=== PATIENT | male | born 1935 | race Caucasian/White ===

== ENCOUNTER 2018-11-06 15:02 | Inpatient (IN) ==
[2018-11-06] MEDS ORDERED: NS 1,000 ML ONE (15:10)
[2018-11-06] MEDS ORDERED: DUONEB (A & A) INH ONE (15:21)
[2018-11-06] MEDS ORDERED: NS 1,000 ML IV ONE ×3 (15:32→19:34)
[2018-11-06 15:54] LABS: HEMOGLOBIN 14.5 g/dL (14.0-18.0); RBC 4.73 XMIL (4.7-6.1); WBC 21.34 X1000 (4.8-10.8)
[2018-11-06 15:55] LABS: BASO# 0.02 X1000 (0.0-0.2); BASO% 0.1 % (0.0-0.8); HEMATOCRIT 43.4 % (42.0-52.0); IMM GRAN# 0.07 X1000 (0.0-0.04); IMM GRAN% 0.3 % (0.0-0.5); LYMPH# 5.98 X1000 (1.2-3.4); MCH 30.7 PG (27-31); MCHC 33.4 g/dL (33-37); MCV 91.8 FL (81-99); MONO# 1.16 X1000 (0.11-0.59); MONO% 5.4 % (1.7-9.3); MPV 11.2 FL (7.4-10.4); NEUT# 14.11 X1000 (1.4-6.5); NEUT% 66.2 % (42.2-75.2); PLT 203 X1000 (130-400); RDW 13.6 % (11.5-14.5)
--- NOTE | 2018-11-06 15:56 | Diag Imaging Result Doc PS360 ---
EXAM: CHEST-1 VIEW 11/06/2018 HISTORY: respiratory failure TECHNIQUE: AP portable semiupright chest at 1543 COMMENT: There is poorly defined but fairly dense opacification of the medial right a cyst. There is apparent COPD. The heart size and pulmonary vascularity are within normal limits. There are no previous studies available for comparison. IMPRESSION: Right lower lobe pneumonia. Advise follow-up until clear. Electronically signed by Jd Hernandez 11/06/2018 3:53 PM
[2018-11-06 15:58] LABS: INR 1.36; PROTIME 17.9 Seconds (11.0-16.0); PTT 26.8 Seconds (22.3-41.8)
[2018-11-06 16:07] LABS: URINE SOURCE CATH
[2018-11-06 16:10] LABS: BILIRUBIN URINE NEGATIVE (NEGATIVE); BLOOD URINE MODERATE (NEGATIVE); COLOR ORANGE; GLUCOSE URINE TRACE mg/dL (NEGATIVE); KETONE URINE NEGATIVE (NEGATIVE); LEUKOCYTES URINE NEGATIVE (NEGATIVE); NITRITE URINE NEGATIVE (NEGATIVE); PH URINE 5.5; PROTEIN URINE 50 mg/dL (NEGATIVE); TURBIDITY URINE CLEAR (CLEAR); UROBILINOGEN URINE NORMAL (NORMAL)
[2018-11-06 16:12] LABS: UR EPITHELIAL CELLS <10 /HPF (<10); URINE BACTERIA NEGATIVE /HPF; URINE WBC <10 /HPF (<10)
[2018-11-06] MEDS ORDERED: ZOSYN 3.375 GM in NS 50 ML IV ONE (16:22)
[2018-11-06 16:23] LABS: ALLEN TEST NO; BLOOD TYPE ARTERIAL; HCO3-(ACT) 23.4 mmoll (20.0-26.0); METHB 1.5 % (0.0-1.5); MODALITY BI PAP; O2(CT) 18.5 mL/dL (15.0-23.0); PCO2(98.6) 36 mmHg (35-45); PO2(98.6) 224 mmHg (60-100); SAMPLE BLOOD; SAO2 100.3 % (95.0-100.0); SRATE 20 BPM; THB 13.2 g/dL (11.5-17.4)
[2018-11-06 16:27] LABS: BANDS 4 % (0-1); LYMPHS 20 % (21-51); MONO 6 % (1-9); SEGS 69 % (42-75)
--- NOTE | 2018-11-06 16:57 | PROVIDER DOCUMENTATION ---
This chart was entered by Julio Cesar Villalba Scribe, acting as scribe for Desmond Alves DO. HPI-Respiratory General - General Chief Complaint: Shortness of Breath Stated Complaint: Respiratory Distress Time Seen by Provider: 11/06/18 15:10 Source: EMS Unable to obtain history due to:: altered Allergies/Adverse Reactions: Patient Allergies Allergy/AdvReac Type Severity Reaction Status Date / Time No Known Allergies Allergy Verified 12/09/12 11:04 Home Medications: Home Medication List Medication Instructions Recorded Confirmed Last Taken Type ATORVAstatin [Lipitor] 40 mg PO DAILY 12/09/12 12/09/12 03/05/13 07:00 History Dutasteride [Avodart] 0.5 mg PO DAILY 12/09/12 12/09/12 03/05/13 History LISINOpril [Prinivil] 10 mg PO DAILY 12/09/12 12/09/12 03/05/13 History Chlordiazepoxide [Librium] 25 mg PO TID 03/07/13 03/07/13 03/05/13 16:00 History Fluoxetine [Prozac] 40 mg PO BID 03/07/13 03/07/13 03/06/13 19:00 History Metformin HCl [Metformin HCl ER] 500 mg PO ACS 03/07/13 03/07/13 03/05/13 16:00 History - History of Present Illness-Resp Nature of Presenting Problem: Pt comes to the ED with respiratory distress. EMS reports pt was found by his neighbors who called EMS. On arrival pt was in his chair in respiratory distress. On arrival pt was on a non-rebreather mask at 15 liters with a SAT in mid 80's. EMS reports pt did fall a couple days ago and refused transport for evaluation. EMS also says his intake has been fluids only for a couple days. . Severity in ED: reports: severe Onset/Duration: reports: unsure Timing: reports: still present Exposure: reports: allergen exposure Review of Systems - Adult - REVIEW OF SYSTEMS - ADULT ROS:: unobtainable per condition Constitutional: denies: chills, fever Past History - Adult - PAST MEDICAL HISTORY-ADULT Review of Records: reports: Old Records Reviewed, Nursing Assessment Review, Medications Reviewed - SOCIAL HISTORY Living Situation: alone Physical Exam-General - PHYSICAL EXAM-ADULT Initial Vital Signs Reviewed: Yes - CONSTITUTIONAL General Appearance: alert (Pt is awake and altered; not really answering questions), moderate distress, other (pt is malnourished, frail, bones very visible. Pt has a urine odor). negative: appears well (ill in appearance) - EYES Eyes: PERRL/EOMI, pink conjunctivae - HEAD, EARS, NOSE, MOUTH & THROAT HENMT: normal ENT inspection. negative: moist mucous membranes (dry) - NECK Neck: non-tender, full range of motion, supple - RESPIRATORY Respiratory: respiratory distress, decreased breath sounds, wheezing, increased rate - CARDIOVASCULAR Cardiovascular: normal peripheral pulses, tachycardia - GASTROINTESTINAL (ABDOMEN) Abdominal Exam: soft, no organomegaly - MUSCULOSKELETAL Extremity: pelvis stable, other (dry skin lower extremities). negative: normal inspection (abrasion left knee; skin ulcer right leg) - SKIN Integumentary: abrasion(s) (left lower extremity), other (skin lesion right leg) . negative: normal turgor - NEUROLOGIC Neurologic: negative: grossly normal, no motor/sensory deficits - PSYCHIATRIC Psych/Mental Status: negative: normal mood/affect, normal thought content, normal thought process, oriented x 3 Progress - PLAN OF CARE/RESULTS Progress/Plan/Lab Results: Vital Signs - 8 hr 11/06/18 15:15 11/06/18 15:21 Temperature 99.1 F Pulse Rate 126 H 120 H Respiratory Rate 34 H 25 H Blood Pressure 86/66 O2 Sat by Pulse Oximetry 86 L 97 Laboratory Results - last 24 hr 11/06/18 11/06/18 11/06/18 15:06 15:06 15:09 WBC 21.34 H RBC 4.73 Hgb 14.5 Hct 43.4 MCV 91.8 MCH 30.7 MCHC 33.4 RDW Std Deviation 13.6 Plt Count 203 MPV 11.2 H Immature Gran % (Auto) 0.3 Neut % (Auto) 66.2 Lymph % (Auto) 28.0 Vigo % (Auto) 5.4 Eos % (Auto) 0.0 Baso % (Auto) 0.1 Immature Gran # (Auto) 0.07 H Neut # (Auto) 14.11 H Lymph # (Auto) 5.98 H Vigo # (Auto) 1.16 H Eos # (Auto) 0.00 Baso # (Auto) 0.02 Segmented Neutrophils 69 Band Neutrophils 4 H Lymphocytes 20 L Monocytes 6 Metamyelocytes 1.0 PT INR PTT (Actin FS) Specimen Type Sample Site pH pCO2 pO2 HCO3 Base Excess Oxyhemoglobin ABG O2 Sat (Calculated) ABG O2 Saturation ABG Carboxyhemoglobin ABG Methemoglobin Ji Test A-a O2 Difference Total Hemoglobin Lactate Liter Flow Blood Gas Modality Spontaneous Rate FiO2 % Inspiratory BiPAP Expiratory BiPAP Troponin T 0.037 Plasma Lactate 2.8 H Urine Source Urine Color Urine Turbidity Urine pH Ur Specific [place] Urine Protein Ur Glucose (Stick) Ur Ketones (Stick) Urine Blood Urine Nitrite Urine Bilirubin Urobilinogen Dipstick Urine Leukocytes Urine WBC (Auto) Urine RBC (Auto) U Epithel Cells (Auto) Urine Bacteria (Auto) 11/06/18 11/06/18 11/06/18 15:10 16:00 16:15 WBC RBC Hgb Hct MCV MCH MCHC RDW Std Deviation Plt Count MPV Immature Gran % (Auto) Neut % (Auto) Lymph % (Auto) Vigo % (Auto) Eos % (Auto) Baso % (Auto) Immature Gran # (Auto) Neut # (Auto) Lymph # (Auto) Vigo # (Auto) Eos # (Auto) Baso # (Auto) Segmented Neutrophils Band Neutrophils Lymphocytes Monocytes Metamyelocytes PT 17.9 H INR 1.36 PTT (Actin FS) 26.8 Specimen Type ARTERIAL Sample Site R BRACHIAL pH 7.40 pCO2 36 pO2 224 H HCO3 23.4 Base Excess -2.0 Oxyhemoglobin 97.0 ABG O2 Sat (Calculated) 18.5 ABG O2 Saturation 100.3 H ABG Carboxyhemoglobin 1.80 ABG Methemoglobin 1.5 Ji Test NO A-a O2 Difference 444.0 Total Hemoglobin 13.2 Lactate 2.20 Liter Flow 15.0 Blood Gas Modality BI PAP Spontaneous Rate 20 FiO2 % 100.0 Inspiratory BiPAP 18.0 Expiratory BiPAP 6.0 Troponin T Plasma Lactate Urine Source CATH Urine Color ORANGE Urine Turbidity CLEAR Urine pH 5.5 Ur Specific [place] 1.020 Urine Protein 50 A Ur Glucose (Stick) TRACE Ur Ketones (Stick) NEGATIVE Urine Blood MODERATE A Urine Nitrite NEGATIVE Urine Bilirubin NEGATIVE Urobilinogen Dipstick NORMAL Urine Leukocytes NEGATIVE Urine WBC (Auto) <10 Urine RBC (Auto) 10-20 A U Epithel Cells (Auto) <10 Urine Bacteria (Auto) NEGATIVE Orders Category Date Time Status Cardiac Monitoring DIRECTED Care 11/06/18 15:29 Active IV Insertion ORDERED Care 11/06/18 15:29 Completed Notify MD of + Sepsis Screen NOW Care 11/06/18 15:29 Active Notify Physician As Ordered Care 11/06/18 15:29 Active CHEST-1 VIEW [RAD] Stat Exams 11/06/18 15:[address] HEAD W/O CONTRAST [CT] Stat Exams 11/06/18 15:49 Ordered ABG [RESP] Routine Lab 11/06/18 16:15 Completed BLOOD CULTURE [BLDCUL] Stat Lab 11/06/18 15:09 Results CBC WITH DIFF [HEME] Stat Lab 11/06/18 15:06 Completed CK PROFILE [SP CHEM] Stat Lab 11/06/18 15:10 Received COMPREHENSIVE METABOLIC PANEL [CHEM] Stat Lab 11/06/18 15:10 Received LACTATE, PLASMA [CHEM] Q3H Lab 11/06/18 15:09 Completed LACTATE, PLASMA [CHEM] Q3H Lab 11/06/18 18:30 Uncollected LACTATE, PLASMA [CHEM] Q3H Lab 11/06/18 21:30 Uncollected PROTIME WITH INR [COAG] Stat Lab 11/06/18 15:10 Completed PTT [COAG] Stat Lab 11/06/18 15:10 Completed TROPONIN T Stat Lab 11/06/18 15:06 Completed URINALYSIS W/POSS RFLX CULT [URINALYSIS] Stat Lab 11/06/18 16:00 Completed 0.9% Sodium Chloride Inj [Ns] 1,000 ml Med 11/06/18 15:10 Discontinued .ROUTE As directed 0.9% Sodium Chloride Inj [Ns] 1,000 ml Med 11/06/18 15:32 Discontinued IV 999 mls/hr 0.9% Sodium Chloride Inj [Ns] 1,000 ml Med 11/06/18 15:32 Discontinued IV 999 mls/hr Albuterol 2.5MG/Ipratrop 0.5MG [Duoneb (A & A)] Med 11/06/18 15:21 Discontinued 3 ml INH NOW ONE Piperacillin/Tazobactam [Zosyn] 3.375 gm Med 11/06/18 16:22 Discontinued 0.9% Sodium Chloride Inj [Ns] 50 ml IV NOW Aerosol Treatments Routine Oth 11/06/18 15:21 Completed Aerosol Treatments Stat Oth 11/06/18 15:21 Completed BIPAP Stat Oth 11/06/18 15:20 Active Oxygen Device Stat Ot 11/06/18 15:29 Completed Transfer/Admit Order [TRANSFER] Routine Transfer 11/06/18 16:51 Ordered Result Diagrams: 11/06/18 15:06 - EKG 1 Time of EKG reading by physician:: 15:16 EKG Read and Signed by:: Desmond Alves EKG Interpretation (*Must complete 3 of following elements*): Abnormal Rate: 120 Rhythm: Sinus Tachycardia Comments: borderline ECG - XRAY 1 XRAY Study: Chest Impression: Abnormal (EXAM: CHEST-1 VIEW 11/06/2018 HISTORY: respiratory failure TECHNIQUE: AP portable semiupright chest at 1543 COMMENT: There is poorly defined but fairly dense opacification of the medial right a cyst. There is apparent COPD. The heart size and pulmonary vascularity are within normal limits. There are no previous studies available for comparison. IMPRESSION: Right lower lobe pneumonia. Advise follow-up until clear. Electronically signed by Jd Hernandez 11/06/2018 3:53 PM) - CONSULTS/PCP/HOSPITALIST Notification #1 *Consult/PCP/Hospitalist*: Dr Burgos- hospitalist spoke with Jenny Time Discussed: 16:53 Reason/Comments: admission Consult Disposition: Will see in ED (accepts) Departure - Departure Date of Disposition Decision: 11/06/18 Time of Disposition Decision: 16:56 DIAGNOSIS: Respiratory failure, Sepsis Disposition: ADMITTED INPATIENT 09 Certified Medical Emergency: Emergent Condition: Critical Referrals and Follow-Ups: None,PCP [Primary Care Provider] - - Critical Care Note This patient required my direct & personal management of CC.: No Attestation - Physician/ NAILA Attestation Patient care was provided by Advanced Practice Provider:: No The physician spent face to face time with patient:: Yes Advanced Practice Provider documentation review:: Supervising physician onsite and consulted in the evaluation and care of this patient. The physician did have a face to face encounter with the patient. This chart was documented by the indicated scribe, (Julio Cesar Villalba Scribe) and accurately reflects the services I performed and decisions made by me, Desmond Alves DO, as attested by the provider's signature.
[2018-11-06 16:58] LABS: ALB/GLOB RATIO 0.8; ALBUMIN 3.2 g/dL (3.5-5.0); CALCIUM 8.8 mg/dL (8.8-10.2); CREATININE 2.7 mg/dL (0.7-1.2); POTASSIUM 4.6 mmol/L (3.5-5.1); TOTAL BILIRUBIN 0.96 mg/dL (0.20-1.00)
--- NOTE | 2018-11-06 17:14 | Diag Imaging Result Doc PS360 ---
EXAM: CT HEAD W/O CONTRAST 11/06/2018 HISTORY: unresponsive TECHNIQUE: This exam was performed using automated exposure control, adjustment of mA or kV according to patient size, and/or use of iterative reconstruction technique. COMMENT: There are patchy lucencies in the periventricular white matter bilaterally. There is a small lacune in the posterior putamen on the left. There is no evidence of mass effect bleed or abnormal extra-axial fluid collection. There are calcifications in the internal carotid arteries bilaterally. The visualized paranasal sinuses are clear. The calvarium is intact. IMPRESSION: Chronic ischemic microvascular changes. No evidence of acute intracranial disease. Electronically signed by Jd Hernandez 11/06/2018 5:11 PM
[2018-11-06 17:16] LABS: CK INDEX 0.1 (0.0-2.5)
--- NOTE | 2018-11-06 17:43 | EKG Report ---
Test Performed on : 11/06/2018 3:16:43 PM Test Reason : ED. No order in [place] Blood Pressure : / mmHG Vent. Rate : 120 BPM Atrial Rate : 120 BPM P-R Int : 124 ms QRS Dur : 078 ms QT Int : 364 ms P-R-T Axes : 082 074 077 degrees QTc Int : 514 ms Sinus tachycardia. Right atrial enlargement Borderline ECG No previous ECGs available Unconfirmed Result
--- NOTE | 2018-11-06 18:22 | PROGRESS NOTE ---
DATE: 11/06/2018 ADVANCE CARE NOTE Patient was evaluated. He was very tired and disheveled, but he did say he did not want to be put on a ventilator or have any aggressive measures. He has been refusing care for several days even admission to the hospital. I discussed with his son, Fabian, who is a power of estate attorney in [place] the patient's prognosis but also that he refused care, and he agreed, acknowledged the patient's wishes that he did not want any aggressive care at this time, so the patient is a DNR 1 based on this conversation with family member and patient. cc: Miguel Burgos MD
--- NOTE | 2018-11-06 18:30 | HISTORY AND PHYSICAL ---
The patient is unfortunate gentleman. It looks like he is diabetic. He is hypertensive but he also has not been taking care of himself. Per his son, he has just refused all care. He just was found in his apartment. He was lying in his own waste and he came in for evaluation. He seemed stable and then all of a sudden he has been refusing care. According to the son they have been trying to get him admitted to hospice but that never happened or he refused hospice and now he is just basically unable take himself. He kind of perseverates and says things over and over again and he was stabilized here continued to follow. The problem is I am not sure in any case patient was evaluated at home and he was brought in, he was found to have pneumonia. He is in acute kidney failure. He is dehydrated, he is disheveled on exam, he is extremely cachectic, bitemporal wasting, ribs showing so we will continue supportive measures, IV antibiotics, fluids and continue to follow very closely. This is a [id number] encounter note with Milly Galarza. cc: Miguel Burgos MD
--- NOTE | 2018-11-06 18:55 | HISTORY AND PHYSICAL ---
CODE STATUS: DNR level 1. PRIMARY CARE PROVIDER: None. CHIEF COMPLAINT: The patient reports "I am doing fine." HISTORY OF PRESENT ILLNESS: Mr. Smith is a cachectic, unkept, ill-appearing, unfortunate 83-year- old male who carries a past medical history of diabetes mellitus, hypertension, BPH, high cholesterol, right carotid endarterectomy, major depressive disorder in the past when he was at [facility] in 2012. He was brought into the ED by EMS in respiratory distress. He was found by his neighbors who called 911. There was a reported fall a few days ago when the patient had refused transport for evaluation, and EMS also reported that his intake had been only fluids for the past couple of days. Per nurse report, the patient was on, I guess you could say, like a hunger strike. Upon further evaluation in the ED, he was found to have a right lower lobe pneumonia. He was tachycardic, tachypneic, and with a positive lactate. He is being admitted for sepsis to the ICU currently on BiPAP and placed on broad-spectrum antibiotics and bronchodilators. The patient just keeps saying, I am doing fine. He reports that he does not want any life-saving measures. We were not too sure if he was stable enough to make his own decisions. We did talk to his son, Damian, who lives in [place] who is his [id number], and he states that he can be a DNR level 1. He looks severely malnourished and dehydrated. He does have a skin cancer on his right lower extremity. He was found in his own urine and feces. He will be admitted to the ICU to continue current treatment. PAST MEDICAL HISTORY: 1. Major depressive disorder back in 2012. 2. Carotid artery disease. 3. High cholesterol. 4. BPH. 5. Hypertension. 6. Diabetes. ALLERGIES: No known drug allergies. HOME MEDICATIONS: Unknown. Per report, he has not really been taking any. FAMILY HISTORY: Unknown. SOCIAL HISTORY: He lives alone. He has a son who lives in [place] who is his [id number]. PAST SURGICAL HISTORY: Right carotid endarterectomy. PHYSICAL EXAMINATION: VITAL SIGNS: Temperature was 99 degrees, heart rate 126, respirations 34, blood pressure was 86/66. O2 was initially 86% on a non-rebreather on BiPAP. He is up to 97%. GENERAL: Mr. Smith is an unfortunate, cachectic, ill-appearing, unkept, 83-year-old male who came in by EMS covered in urine and feces. Currently on BiPAP in some respiratory distress. HEENT: Atraumatic, normocephalic. PERRL. NECK: Supple. Trachea midline. CARDIOVASCULAR: S1, S2 appreciated. Can not appreciate any murmurs, gallops, or rubs. RESPIRATORY: Lung sounds decreased bilaterally. GI: Flat. Appeared to be nontender. Positive bowel sounds in 4 quadrants. : Draining tea-colored urine. SKIN: Pale, dry. Various scrapes and bruises of various healing. He does have a right skin cancer to his right lower extremity that has not been dealt with. NEUROLOGIC: The patient is awake. He does fight when you try to take his covers off. He wants them back on, and all he will say is "I'm doing fine." He did not really follow any commands, but he was moving all extremities. DIAGNOSTIC DATA: Head CT showed chronic ischemic microvascular changes but no evidence of acute intracranial disease. LABORATORY DATA: White count 20, hemoglobin and hematocrit 14 and 43, platelet count is 203,000. ABG with pH 7.40, pCO2 of 36, O2 is 224, base excess -2. O2 saturation was 100% on BiPAP. Sodium 143, potassium 4.6, carbon dioxide 21. Blood glucose is 149, AST 38. CK was 779. Plasma lactate 2.8. Urinalysis 10 to 20 RBCs, moderate amount of blood, 50 protein, negative for bacteria, negative for nitrites. ASSESSMENT AND PLAN: 1. Sepsis secondary to right lower lobe pneumonia. We will place the patient on a septic protocol, IV antibiotic, IV fluids. 2. Acute hypoxemic respiratory failure. Will continue on BiPAP. Recheck an ABG in the a.m. 3. Protein-calorie malnutrition. We will continue with IV fluids for now. 4. Dehydration. Continue with IV fluids. 5. Acute kidney injury, possibly secondary to dehydration. We will recheck in the a.m. 6. Failure to thrive. 7. Major depressive disorder history, aware. 8. Carotid artery stenosis status post endarterectomy. 9. High cholesterol. 10. Benign prostatic hypertrophy. 11. Hypertension. 12. Diabetes. 13. Hypotension upon arrival, somewhat improved with IV fluids. 14. Code status: [id number] level 1. 15. Further recommendation to follow physician evaluation, laboratory and diagnostic data. Dictated by JOHNY Chow for Miguel Burgos MD cc: Miguel Burgos MD
[2018-11-06] MEDS ORDERED: VANCOMYCIN IV PER PHARMACY MISC SCH (19:56)
[2018-11-06] MEDS: HUMALOG SUBQ SCH (20:36)
[2018-11-06] MEDS ORDERED: VANCOMYCIN 1,000 MG in NS 250 ML IV ONE (21:00)
[2018-11-06] MEDS: NS 1,000 ML IV SCH (21:36)
[2018-11-06] MEDS ORDERED: VANCOMYCIN 250 MG in NS 100 ML IV ONE (23:00)
[2018-11-07] MEDS: ZOSYN 3.375 GM in NS 50 ML IV SCH ×5 (00:40→21:59)
--- NOTE | 2018-11-07 02:08 | EKG Report ---
Test Performed on : 11/07/2018 00:56:27 AM Test Reason : tachycardia Blood Pressure : / mmHG Vent. Rate : 163 BPM Atrial Rate : 131 BPM P-R Int : 000 ms QRS Dur : 084 ms QT Int : 292 ms P-R-T Axes : 000 -35 029 degrees QTc Int : 480 ms Atrial fibrillation. with rapid ventricular response. with premature ventricular or aberrantly conduc tayo complexes. Left axis deviation Nonspecific ST abnormality Abnormal ECG When compared with ECG of 06-NOV-2018 15:16, (Unconfirmed) Atrial fibrillation. has replaced Sinus rhythm. QRS axis shifted left Non-specific change in ST segment in Inferior leads Nonspecific T wave abnormality now evident in Inferior leads T wave amplitude has decreased in Anterior leads Confirmed by Kristopher Durham MD ([id number]) on 11/09/2018 8:53:25 PM
[2018-11-07] MEDS ORDERED: CARDIZEM IV ONE (02:16)
[2018-11-07] MEDS ORDERED: LEVOPHED 8 MG in D5 1/2 NS 250 ML IV SCH (02:30)
[2018-11-07] MEDS ORDERED: NS 500 ML IV ONE (02:32)
[2018-11-07] MEDS: CARDIZEM 125 MG in NS 100 ML IV SCH ×2 (02:38→11:55)
[2018-11-07] MEDS ORDERED: NS 500 ML ONE (02:39)
[2018-11-07] MEDS: NS 1,000 ML IV SCH ×2 (02:44→08:22)
[2018-11-07 04:39] LABS: ALLEN TEST YES; BE -5.9 mmoll (-3.0-3.0); BLOOD TYPE ARTERIAL; HCO3-(ACT) 20.1 mmoll (20.0-26.0); METHB 1.2 % (0.0-1.5); O2(CT) 17.1 mL/dL (15.0-23.0); O2HB 90.3 % (95.0-99.0); PCO2(98.6) 33 mmHg (35-45); PO2(98.6) 63 mmHg (60-100); SAMPLE BLOOD; SAO2 93.1 % (95.0-100.0); SRATE 24 BPM; THB 13.5 g/dL (11.5-17.4); pH(98.6) 7.36 (7.35-7.45)
[2018-11-07 04:41] LABS: MODALITY BI PAP
[2018-11-07 06:02] LABS: ALB/GLOB RATIO 0.7; ALBUMIN 2.1 g/dL (3.5-5.0); CALCIUM 7.3 mg/dL (8.8-10.2); CREATININE 2.2 mg/dL (0.7-1.2); TOTAL BILIRUBIN 0.8 mg/dL (0.20-1.00); TOTAL PROTEIN 5.3 g/dL (6.3-8.3)
[2018-11-07] MEDS: HUMALOG SUBQ SCH ×4 (06:17→20:59)
--- NOTE | 2018-11-07 07:29 | Diag Imaging Result Doc PS360 ---
EXAM: CHEST-PORTABLE INDICATION: Pneumonia TECHNIQUE: 2 views COMPARISON: 11/06/2018 FINDINGS: COPD changes are again noted. Dense right lower lobe airspace consolidation suggesting pneumonia is stable to marginally worse. No new consolidation is identified. Cardiac silhouette is stable. IMPRESSION: Stable to marginal worsening of right lower lung zone consolidation. Electronically signed by Abdi Reno 11/07/2018 7:26 AM
[2018-11-07 09:11] LABS: BASO# 0.02 X1000 (0.0-0.2); BASO% 0.1 % (0.0-0.8); EOS# 0.01 X1000 (0.0-0.7); EOS% 0.1 % (0.0-10.0); HEMATOCRIT 38.7 % (42.0-52.0); HEMOGLOBIN 12.7 g/dL (14.0-18.0); IMM GRAN# 0.37 X1000 (0.0-0.04); IMM GRAN% 1.9 % (0.0-0.5); LYMPH# 3.15 X1000 (1.2-3.4); LYMPH% 16.5 % (20.5-51.1); MCH 30.7 PG (27-31); MCHC 32.8 g/dL (33-37); MCV 93.5 FL (81-99); MONO# 0.82 X1000 (0.11-0.59); MONO% 4.3 % (1.7-9.3); MPV 11.7 FL (7.4-10.4); NEUT# 14.77 X1000 (1.4-6.5); NEUT% 77.1 % (42.2-75.2); PLT 113 X1000 (130-400); RBC 4.14 XMIL (4.7-6.1); WBC 19.14 X1000 (4.8-10.8)
[2018-11-07] MEDS: NEXIUM IV SCH (09:29)
[2018-11-07 11:05] LABS: BANDS 25 % (0-1); LYMPHS 15 % (21-51); MONO 4 % (1-9); SEGS 56 % (42-75)
[2018-11-07] MEDS: D5 1/2 NS 1,000 ML IV SCH ×2 (11:57→21:55)
--- NOTE | 2018-11-07 12:02 | PROGRESS NOTE ---
DATE: 11/07/2018 SUBJECTIVE: He is still very confused, refuses really to discuss with us. OBJECTIVE: Blood pressure 137/83, heart rate 91, respiratory rate 26, and temperature was 97.7 degrees.Cardiovascular: Irregularly irregular. Pulmonary: Diminished breath sounds at the bases. GI: Soft, nontender, and nondistended. Bowel sounds are positive. Scaphoid abdomen. LABORATORY: White count 19. Hemoglobin and hematocrit 12 and 38, and platelets have dropped to 113. A pH 7.36, pCO2 33, PaO2 63 that is on BiPAP. Sodium is up to 149. Bicarb down to 17. BUN and creatinine are 80 and 2.2. Glucose is 120. Chest x-ray shows more consolidation. PROBLEM LIST: 1. Right lower lobe pneumonia with respiratory failure. We will continue antibiotics, follow closely, and treat closely. 2. Acute hypoxic respiratory failure. He is currently on BiPAP. We will continue to monitor. Pulmonary is following. 3. Acute kidney injury, likely due to dehydration. Malnutrition has not improved much with fluids. We will continue to monitor. Check urine electrolytes. Renal ultrasound and follow. 4. Atrial fibrillation with rapid ventricular response. He has developed atrial fibrillation overnight that may have been related to sepsis, and breathing treatments. We will continue to monitor. DISPOSITION: He is still critically ill. Updated his local friend who has been his caregiver here and lifelong friend about his condition. He is a DNR 1. Unfortunately, patient is not wanting to participate in his care. I am not sure if this is related to depression or dementia, or issues from that standpoint. We will continue current care. Get a palliative care consult. Discussed with the family, and see how things go. cc: Miguel Burgos MD
[2018-11-07 13:38] LABS: CK INDEX 0.6 (0.0-2.5); CK-MB 2.04 ng/mL (0.0-5.0)
[2018-11-07 19:33] LABS: UR PROT RANDOM 34.9 mg/dL
[2018-11-08] MEDS: ZOSYN 3.375 GM in NS 50 ML IV SCH ×2 (05:16→10:14)
[2018-11-08] MEDS ORDERED: LOVENOX SUBQ SCH (06:00)
[2018-11-08] MEDS: HUMALOG SUBQ SCH ×4 (06:05→20:39)
--- NOTE | 2018-11-08 06:05 | CONSULTATION ---
DATE OF CONSULTATION: 11/07/2018 REQUESTING PROVIDER: JOHNY Chow. REASON FOR CONSULTATION: Respiratory failure. HISTORY OF PRESENT ILLNESS: This is an 83-year-old male with a medical history of major depressive disorder, diabetes mellitus type 2, hypertension, benign prostatic hyperplasia, high cholesterol, and carotid artery disease. He presented to the ER yesterday afternoon with respiratory distress. Upon arrival to the ER, the patient was placed on a non- rebreather mask at 15 L with oxygen saturation in mid 90s. Chest x-ray showed right lower lobe pneumonia. Further workup also revealed sepsis, dehydration, and acute kidney injury. He has been admitted to the ICU for further evaluation and management. The patient currently is lying on bed with BiPAP mask on. He mainly keeps silent as I am talking to him, and he tried to avoid eye contact. He did not answer any of my questions, and not follow any simple commands. He has a friend at the bedside. His friend reported that the patient has a productive cough for 2 weeks with some yellow phlegm, and later he developed shortness of breath. He refused going to seek medical treatment. He told his friend that he decided to let go and he is ready to . His friend also reported that he had a fall last Wednesday and he refused to be evaluated. PAST MEDICAL HISTORY: 1. Major depressive disorder, diagnosed in 2012. 2. Diabetes mellitus type 2. 3. Hypertension. 4. Benign prostatic hyperplasia. 5. High cholesterol. 6. Carotid artery disease, status post right carotid endarterectomy. 7. Medical noncompliance. The patient's friend reported that the patient has not taken any medicine for 3 years. SOCIAL HISTORY: The patient has 2 sons, both lives in [place]. He lives alone in an apartment. He used to be a heavy smoker. He smoked for over 50 years, and later he viped for 7 years until he quit 1 year ago as it is not allowed to vipe inside the apartment. He has no history of alcohol or illicit drug use. FAMILY HISTORY: Per patient's friend, both his parents at old age. ALLERGIES: No known drug allergies. REVIEW OF SYSTEMS: Unable to be obtained. PHYSICAL EXAMINATION: Vital Signs: Temperature 97.7, blood pressure 130/69, pulse 87, respiratory rate 25, and oxygen saturation 96% on BiPAP with FiO2 50% and pressure 12/6. General: Chronically ill appearing cachectic, unkempt, elderly male lying in bed on a BiPAP mask with some respiratory distress. HEENT: Atraumatic, normocephalic. Trachea midline. Mucosa pink and moist. Respiratory: labored, uses some accessory muscles. Auscultation revealed diminished breathing sounds bibasilarly and some mild old inspiratory crackles bibasilarly. Cardiovascular: S1 and S2 noted. Irregularly irregular with murmur. Gastrointestinal: Soft, flat, and nontender. Bowel sounds normoactive in all 4 quadrants. Extremities: No pedal edema. Dorsalis pedis diminished bilaterally. Neurologic: The patient is awake, but not responsive to any simple command. Patient is awake, but not answering any questions. He tried to avoid eye contact. He did not follow any commands. LABORATORY: White blood cell 19.14, hemoglobin 12.7, hematocrit 38.7, and platelet 114,000. Sodium 149, potassium 4.0, chloride 116, carbon dioxide 17, BUN 80, creatinine 2.2, and glucose 120. ABG pH 7.36, pCO2 33, PO2 63, HC03 20.1, base excess -5.9, and oxyhemoglobin 90.3. IMAGING DATA: Chest x-ray revealed stable to marginal worsening of right lower lung zone consolidation. ASSESSMENT: This is an 83-year-old male with a medical history of major depressive disorder. Diabetes mellitus type 2, hypertension, benign prostatic hyperplasia, high cholesterol, and carotid artery disease. He has been admitted since yesterday to the ICU with sepsis secondary to right lower lobe pneumonia, acute hypoxemic respiratory failure, protein calorie malnutrition, dehydration, acute kidney injury, failure to thrive. 1. Acute hypoxemic respiratory failure. 2. Right lower lobe pneumonia. 3. Sepsis secondary to right lower lobe pneumonia. 4. Acute kidney injury. 5. Major depressive disorder. 6. Code status DNR 1. PLAN: 1. Continue BiPAP with supplemental oxygen. 2. Continue antibiotics. 3. Follow up with CBC, BMP, blood cultures, sputum culture and chest x-ray. 4. Continue GI and DVT prophylaxis. 5. Further recommendations pending hospital course. Thank you for the courtesy of this consult. Dictated by JOHNY Perez for Raegan Bailey MD cc: JOHNY Perez MD MTDD
[2018-11-08 06:21] LABS: BASO# 0.01 X1000 (0.0-0.2); EOS# 0.01 X1000 (0.0-0.7); HEMATOCRIT 29.5 % (42.0-52.0); HEMOGLOBIN 9.9 g/dL (14.0-18.0); IMM GRAN# 0.26 X1000 (0.0-0.04); IMM GRAN% 1.1 % (0.0-0.5); LYMPH# 3.64 X1000 (1.2-3.4); LYMPH% 16.1 % (20.5-51.1); MCHC 33.6 g/dL (33-37); MCV 92.5 FL (81-99); MPV 13.1 FL (7.4-10.4); NEUT# 17.79 X1000 (1.4-6.5); NEUT% 78.8 % (42.2-75.2); PLT 111 X1000 (130-400); RBC 3.19 XMIL (4.7-6.1); RDW 13.7 % (11.5-14.5); WBC 22.61 X1000 (4.8-10.8)
[2018-11-08 06:32] LABS: HEMOGLOBIN A1C 5.3 % (4.8-6.0)
[2018-11-08 07:10] LABS: CALCIUM 7.9 mg/dL (8.8-10.2); CREATININE 1.7 mg/dL (0.7-1.2); POTASSIUM 3.3 mmol/L (3.5-5.1)
[2018-11-08 07:14] LABS: DIRECT BILIRUBIN 0.2 mg/dL (0.00-0.20)
[2018-11-08 07:36] LABS: TOTAL BILIRUBIN 0.57 mg/dL (0.20-1.00); TOTAL PROTEIN 5.9 g/dL (6.3-8.3)
[2018-11-08 07:49] LABS: ALB/GLOB RATIO 0.6; ALBUMIN 2.3 g/dL (3.5-5.0)
--- NOTE | 2018-11-08 08:45 | Diag Imaging Result Doc PS360 ---
EXAM: CHEST-1 VIEW INDICATION: SOB TECHNIQUE: One view COMPARISON: 11/07/2018 FINDINGS: The dense right lower lung zone consolidation is unchanged. No new consolidation is identified. Cardiac silhouette is stable. IMPRESSION: Stable chest. Electronically signed by Abdi Reno 11/08/2018 8:43 AM
[2018-11-08] MEDS: NEXIUM IV SCH (08:49)
[2018-11-08] MEDS: ARIXTRA SUBQ SCH (08:49)
[2018-11-08] MEDS: SODIUM CHLORIDE 0.9% INJ SCH (08:49)
[2018-11-08 08:55] LABS: ALLEN TEST YES; BE -2.9 mmoll (-3.0-3.0); BLOOD TYPE ARTERIAL; HCO3-(ACT) 22.6 mmoll (20.0-26.0); METHB 0.6 % (0.0-1.5); O2HB 94.3 % (95.0-99.0); PCO2(98.6) 30 mmHg (35-45); PO2(98.6) 66 mmHg (60-100); SAMPLE BLOOD; SAO2 97.3 % (95.0-100.0); SRATE 4 BPM; THB 11.3 g/dL (11.5-17.4); pH(98.6) 7.44 (7.35-7.45)
[2018-11-08 08:56] LABS: MODALITY BI PAP
[2018-11-08] MEDS: D5 1/2 NS 1,000 ML IV SCH (09:00)
[2018-11-08] MEDS: D5W 1,000 ML IV SCH ×2 (12:12→22:43)
[2018-11-08] MEDS: CARDIZEM 125 MG in NS 100 ML IV SCH (12:12)
[2018-11-08] MEDS: MAXIPIME 1 GM in NS 50 ML IV SCH (13:11)
--- NOTE | 2018-11-08 14:08 | PROGRESS NOTE ---
DATE: 11/08/2018 SUBJECTIVE: The patient is a little bit more with it today, like he can interact a bit more. He, of course, says he is fine but he does not answer the questions that he does not want answer in the sense of asking him about eating and things of that nature. OBJECTIVE: Blood pressure is 151/90, heart rate of 108, respiratory rate of 20, temperature 98.2, 97%. Cardiovascular: Regular rate and rhythm. Pulmonary: Bilateral breath sounds clear to auscultation. GI: Soft, nontender, nondistended. Bowel sounds were positive. Laboratory Data: White count is 22,000, up from 19,000, hemoglobin and hematocrit 9.9 and 29, platelets of 111,000. PH 7.44, pCO2 of 30, PaO2 of 66. Sodium is up to 153, potassium 3.3, creatinine down to 1.7, and BUN is down to 72. Chest x-ray shows persistent right lower lobe pneumonia. To me, it looks a little bit better. ASSESSMENT AND PLAN: 1. Right lower lobe pneumonia. Continue empiric antibiotics. Seems to be doing okay. Blood cultures positive for gram-positive cocci and he is currently on vancomycin. 2. Bacteremia. We will continue empiric antibiotics until we can get better information. 3. Acute kidney injury due to dehydration. We will continue intravenous fluids and follow. 4. Hypernatremia, likely related to normal saline and poor oral intake. We will change him to D5 and we will see how he does. 5. Atrial fibrillation with rapid ventricular response. We are going to continue Cardizem. He does qualify for anticoagulation but we have not done that. I am just concerned about bleeding. He is on Arixtra at this point. Also, we will have to get a better sense of how aggressive the family wants to be. Patient refused an echocardiogram yesterday. 6. Disposition is pending. Have to continue to follow. This may be a hospice type situation pending further discussion with the family. Palliative care nursing is involved. He has been able to come off of a respiratory device. cc: Miguel Burgos MD
--- NOTE | 2018-11-08 14:17 | PROVIDER PROGRESS NOTE ---
Progress Note Evaluation time: [id number] 11/08/2018 SUBJECTIVE: The patient is awake and apparently more alert. He is just put on a VM with FiO2 50%. He has been on a BiPAP since yesterday morning. He answers some simple questions, but most of time he replies "I am ok". He has no complaint at this time. OBJECTIVE: Vital signs: Temperature 98.2, blood pressure 151/90, heart rate 108, respiratory rate 20, SaO2 97% on a VM with FiO2 50%. General: Chronically ill appearing, cachectic, elderly male lying in bed in no acute distress. HEENT: Atraumatic, normocephalic. Trachea midline. Mucosa pink and moist. Respiratory: even and unlabored. Auscultation reveals diminished breathing sounds bibasilarly. Cardiovascular: S1 and S2 noted. Irregularly irregular with murmur. Gastrointestinal: Soft, flat, and nontender. Bowel sounds normoactive in all 4 quadrants. Extremities: No pedal edema. Dorsalis pedis diminished bilaterally. Neurologic: Awake and alert, answers some simple questions, but not follow commands by keeping stating that "I am ok". Laboratory Data: White count 22,000, hemoglobin 9.9, hematocrit 29, platelets of 111,000. PH 7.44, pCO2 30, PaO2 66, HCO3 22.6, base excess -2.9 and oxyhemoglobin 94.3. Sodium 153, potassium 3.3, chloride 119, carbon dioxide 21, BUN 72, creatinine 1.7, and glucose 177. Imaging Data: Chest x-ray shows persistent right lower lobe pneumonia. ASSESSMENT: 1. Acute hypoxemic respiratory failure. 2. Right lower lobe pneumonia. 3. Sepsis secondary to right lower lobe pneumonia. 4. Acute kidney injury. 5. Major depressive disorder. 6. Code status DNR 1. PLAN: 1. Continue supplemental oxygen and BiPAP as needed. 2. Continue antibiotics. 3. Follow up with ABG, CBC, BMP, blood cultures, sputum culture and chest x-ray. 4. Continue GI and DVT prophylaxis. 5. Further recommendations pending hospital course. Thank you for the consult! (Tre Pollard) Joint Evaluation as above 30 minutes (Raegan Bailey I.)
[2018-11-09] MEDS: MAXIPIME 1 GM in NS 50 ML IV SCH ×2 (01:01→12:42)
[2018-11-09 04:35] LABS: ALLEN TEST YES; BE -1.5 mmoll (-3.0-3.0); BLOOD TYPE ARTERIAL; HCO3-(ACT) 23.6 mmoll (20.0-26.0); METHB 1.5 % (0.0-1.5); O2HB 92.6 % (95.0-99.0); PCO2(98.6) 37 mmHg (35-45); PO2(98.6) 67 mmHg (60-100); SAMPLE BLOOD; SAO2 95.5 % (95.0-100.0); THB 13.8 g/dL (11.5-17.4)
[2018-11-09 04:38] LABS: MODALITY NRB
[2018-11-09 05:35] LABS: BASO# 0.01 X1000 (0.0-0.2); EOS# 0.05 X1000 (0.0-0.7); EOS% 0.2 % (0.0-10.0); HEMATOCRIT 34.1 % (42.0-52.0); HEMOGLOBIN 11.4 g/dL (14.0-18.0); IMM GRAN# 0.12 X1000 (0.0-0.04); IMM GRAN% 0.6 % (0.0-0.5); LYMPH# 3.44 X1000 (1.2-3.4); LYMPH% 16.7 % (20.5-51.1); MCH 30.3 PG (27-31); MCHC 33.4 g/dL (33-37); MCV 90.7 FL (81-99); MONO# 0.63 X1000 (0.11-0.59); MONO% 3.1 % (1.7-9.3); MPV 11.8 FL (7.4-10.4); NEUT# 16.33 X1000 (1.4-6.5); NEUT% 79.4 % (42.2-75.2); PLT 131 X1000 (130-400); RBC 3.76 XMIL (4.7-6.1); RDW 13.8 % (11.5-14.5); WBC 20.58 X1000 (4.8-10.8)
[2018-11-09 05:36] LABS: CALCIUM 7.8 mg/dL (8.8-10.2); CREATININE 1.2 mg/dL (0.7-1.2); POTASSIUM 2.9 mmol/L (3.5-5.1)
[2018-11-09] MEDS ORDERED: POTASSIUM CHLORIDE 60 MEQ in NS 500 ML IV ONE (05:53)
[2018-11-09] MEDS: HUMALOG SUBQ SCH (06:42)
--- NOTE | 2018-11-09 07:26 | Diag Imaging Result Doc PS360 ---
EXAM: CHEST-1 VIEW HISTORY: SOB TECHNIQUE: Portable chest single view COMPARISON: 11/08/2018 FINDINGS: The patient's hands are crossed over the lower chest. However there does appear to be improvement in the basilar infiltrates. No definite worsening. No cardiomegaly. The upper lungs are clear although there is apical pleural thickening. IMPRESSION: There appears to be slight interval improvement. Electronically signed by Kolton Jack 11/09/2018 7:23 AM
[2018-11-09] MEDS: ARIXTRA SUBQ SCH (08:20)
[2018-11-09] MEDS: SODIUM CHLORIDE 0.9% INJ SCH (08:21)
[2018-11-09] MEDS: NEXIUM IV SCH (08:21)
[2018-11-09] MEDS: D5W 1,000 ML IV SCH ×2 (08:21→18:31)
[2018-11-09] MEDS ORDERED: KLOR-CON PO ONE (10:13)
[2018-11-09] MEDS ORDERED: POTASSIUM CHLORIDE 40 MEQ/SWI 40 MEQ/100 ML IVPB IV ONE (10:13)
[2018-11-09] MEDS: CARDIZEM PO SCH ×3 (10:30→20:50)
[2018-11-09] MEDS: HUMULIN R SUBQ SCH ×3 (10:30→20:54)
[2018-11-09] MEDS ORDERED: VANCOMYCIN 1,000 MG in NS 250 ML IV SCH ×4 (11:00)
--- NOTE | 2018-11-09 11:10 | PROGRESS NOTE ---
DATE: 11/09/2018 SUBJECTIVE: The patient has no major complaints. OBJECTIVE: Blood pressure 151/81, heart rate 94, respiratory rate 19, temperature 99.1 degrees. Cardiovascular: Regular rate and rhythm. Pulmonary: Bilateral breath sounds clear to auscultation. GI: Soft, nontender, nondistended. Bowel sounds were positive. Laboratory Data: White count is still at 20,000, hemoglobin and hematocrit 11 and 34, platelets of 131,000. PH 7.4, pCO2 of 37, PaO2 of 67. He is on 50%. Sodium is down to 147, potassium of 2.9, BUN and creatinine of 50 and 1.2, down from 72 and 1.7. Chest x-ray shows slight improvement of pneumonia. PROBLEM LIST: 1. Acute hypoxic respiratory failure related to pneumonia. We will continue antibiotics. He is on vancomycin and cefepime. He has positive blood cultures so we will continue to follow. 2. Gram-positive bacteremia. He is currently on vancomycin. We will await for identification. We may need to get infectious disease involved. I have ordered an echocardiogram, which she agreed to today so hopefully we can rule out any vegetation. It could just simply be strep pneumonia but we will see. 3. Acute kidney injury that continues to improve with intravenous fluids, most likely related to severe dehydration. 4. Hypernatremia, also related to dehydration, free water restriction. He is on D5 and his sugars have been okay and his fluids. We will continue to treat his hypernatremia. 5. Atrial fibrillation. Appears to be overall rate controlled. We will switch him to oral Cardizem, transition as soon as we can. 6. Disposition. He looks a little bit better. He has not been on a diet. I will start Remeron for depression and appetite stimulation, and will see how he does. Hopefully, that will not oversedate him. We will transition him to stepdown. He will likely need long-term placement in one form or fashion so we will see how he does. We will continue to talk with family about their goals. cc: Miguel Burgos MD
--- NOTE | 2018-11-09 15:01 | ECHO REPORT ---
ORDER DATE: 11/09/2018 INDICATION: Pneumonia. Acute kidney injury. Atrial fib. FINDINGS: 1. Right atrium appears normal in size at 3.4 cm. 2. Mild tricuspid regurgitation. RV systolic pressure of 39. 3. Normal RV size and systolic function. 4. No significant pulmonic insufficiency. 5. Mild left atrial enlargement with a volume index of 31. 6. No mitral valve prolapse. Mild mitral regurgitation. 7. Normal LV size, end-diastolic dimension of 3.6. Mild left ventricular hypertrophy with a posterior and interventricular septal wall thickness of 1.3 cm each. Normal LV systolic function. Estimated EF of 55% with normal wall motion. 8. Aortic valve is not well visualized. There is no clear evidence of stenosis or insufficiency with the valve. 9. Aorta appears normal in visualized segments. 10. No pericardial effusion seen. cc: MD Miguel Nguyen MD
[2018-11-09] MEDS: REMERON PO SCH (20:50)
[2018-11-10] MEDS: MAXIPIME 1 GM in NS 50 ML IV SCH ×2 (01:02→15:19)
[2018-11-10] MEDS: CARDIZEM PO SCH ×4 (02:18→21:05)
[2018-11-10] MEDS ORDERED: NORCO-5 PO PRN (03:16)
[2018-11-10 04:46] LABS: ALLEN TEST YES; BE -0.1 mmoll (-3.0-3.0); BLOOD TYPE ARTERIAL; HCO3-(ACT) 24.6 mmoll (20.0-26.0); METHB 0.8 % (0.0-1.5); O2(CT) 13.5 mL/dL (15.0-23.0); PCO2(98.6) 35 mmHg (35-45); PO2(98.6) 50 mmHg (60-100); SAMPLE BLOOD; SAO2 89.9 % (95.0-100.0); pH(98.6) 7.44 (7.35-7.45)
[2018-11-10 04:48] LABS: MODALITY VENTIMASK; O2HB 87.5 % (95.0-99.0)
[2018-11-10 05:37] LABS: BASO# 0.02 X1000 (0.0-0.2); BASO% 0.1 % (0.0-0.8); EOS# 0.06 X1000 (0.0-0.7); EOS% 0.3 % (0.0-10.0); HEMATOCRIT 34.8 % (42.0-52.0); HEMOGLOBIN 11.5 g/dL (14.0-18.0); IMM GRAN# 0.08 X1000 (0.0-0.04); IMM GRAN% 0.4 % (0.0-0.5); LYMPH# 2.96 X1000 (1.2-3.4); LYMPH% 16.5 % (20.5-51.1); MCH 30.4 PG (27-31); MCV 92.1 FL (81-99); MONO# 0.47 X1000 (0.11-0.59); MONO% 2.6 % (1.7-9.3); MPV 11.2 FL (7.4-10.4); NEUT# 14.33 X1000 (1.4-6.5); NEUT% 80.1 % (42.2-75.2); PLT 131 X1000 (130-400); RBC 3.78 XMIL (4.7-6.1); RDW 13.8 % (11.5-14.5); WBC 17.92 X1000 (4.8-10.8)
[2018-11-10] MEDS: D5W 1,000 ML IV SCH (05:44)
[2018-11-10 06:06] LABS: AGAP 11; ALB/GLOB RATIO 0.5; ALBUMIN 1.8 g/dL (3.5-5.0); ALKALINE PHOSPHATASE 62 U/L (32-122); BUN 33 mg/dL (8-22); CALCIUM 7.4 mg/dL (8.8-10.2); CHLORIDE 107 mmol/L (98-107); COSMO 284; CREATININE 0.9 mg/dL (0.7-1.2); ESTIMATED GFR > 60; GLUCOSE 124 mg/dL (70-104); GOT 25 U/L (10-34); GPT 26 U/L (10-44); MAGNESIUM 1.6 mg/dL (1.5-2.7); PHOSPHORUS 1.8 mg/dL (2.7-4.5); POTASSIUM 3.6 mmol/L (3.5-5.1); SODIUM 138 mmol/L (136-145); TCO2 20 mmol/L (25-35); TOTAL PROTEIN 5.5 g/dL (6.3-8.3)
[2018-11-10] MEDS: HUMULIN R SUBQ SCH ×4 (06:25→21:05)
--- NOTE | 2018-11-10 07:11 | Diag Imaging Result Doc PS360 ---
CHEST-1 VIEW - 11/10/2018 INDICATION: SOB COMPARISON: 11/09/2018 FINDINGS: There is severe COPD. There is worsening significant central and dense bilateral basilar infiltrate/pneumonia. There are probably small pleural effusions. Heart size remains top normal. IMPRESSION: Worsening central interstitial and basilar infiltrates most suggestive of pulmonary edema. Bilateral pleural effusions. Severe COPD. Electronically signed by Matthew Genao 11/10/2018 7:08 AM
[2018-11-10] MEDS: SODIUM CHLORIDE 0.9% INJ SCH (08:17)
[2018-11-10] MEDS: NEXIUM IV SCH (08:17)
[2018-11-10] MEDS: MAG-OX PO SCH ×3 (08:17→21:05)
[2018-11-10] MEDS: ARIXTRA SUBQ SCH (08:18)
[2018-11-10] MEDS ORDERED: VANCOMYCIN 1,000 MG in NS 250 ML IV SCH (12:00)
--- NOTE | 2018-11-10 16:58 | PROGRESS NOTE ---
DATE: 11/10/2018 SUBJECTIVE: The patient is not as responsive as he was yesterday. OBJECTIVE: Vital signs: Blood pressure is 126/75, heart rate of 103, respiratory rate 18, temperature 97.6 degrees, 90% on 6 L. Cardiovascular: Regular rate and rhythm. Pulmonary: Bilateral breath sounds. Clear to auscultation. GI: Soft, nontender, nondistended. Bowel sounds are positive. LABORATORY DATA: White count is 17, hemoglobin and hematocrit 11 and 34, platelets of 131,000. Micro, he has got Staph epidermidis in both blood cultures. PROBLEM LIST: 1. Acute hypoxic respiratory failure related to pneumonia. We will continue antibiotics. He is on vancomycin and cefepime. 2. Coagulase-negative bacteremia. He does have 2/2, although I am not sure how that implicates his pneumonia. I am waiting on family to make a decision about how aggressive we are going to be, although I think they are leaning towards pursuing comfort care because the patient is refusing certain aspects of treatment and also he is declining a lot of treatment and he is in decline himself. 3. Acute kidney injury. He has improved on IV fluids. Hypernatremia. Continue D5. 4. Atrial fibrillation. He is continuing on Cardizem and rate control. 5. Disposition. We have talked at length with the patient. We are going to continue current measures but not pursue anything more aggressive at this point. cc: Miguel Burgos MD
[2018-11-10] MEDS: D5 1/2 NS 1,000 ML IV SCH (18:24)
--- NOTE | 2018-11-10 20:17 | PROGRESS NOTE ---
DATE: 11/10/2018 ADVANCE DIRECTIVES NOTE: I have discussed the case with multiple family members, his son, brother, and nephew present who have flown in from [place]. Clara Reis, the Palliative Care nurse was also present. We discussed his poor prognosis and his concern over his steady decline, and the fact that he did not want any aggressive measures, which they agreed to. Realistically, they asked questions about getting into a plane and going to the [place] area, and I think that was feasible. The fact of him recovering would likely require hyperalimentation because he refuses to eat, and he was very clear that he did not want a feeding tube or anything to prolong his life. So, at this point, we are looking at pursuing comfort measures. Family is still deciding about when that will happen. He is a DNR. We are going to continue supportive measures. We will consider hospice evaluation for inpatient versus hospice versus outpatient hospice. The patient is refusing BiPAP at this point and that may become a terminal event. We will continue to follow closely. cc: Miguel Burgos MD MTDD
[2018-11-10] MEDS: PEPCID PO SCH (21:05)
[2018-11-10] MEDS: REMERON PO SCH (21:06)
[2018-11-11] MEDS: CARDIZEM PO SCH ×2 (01:27→10:01)
[2018-11-11] MEDS: MAXIPIME 1 GM in NS 50 ML IV SCH (01:27)
[2018-11-11] MEDS: MAG-OX PO SCH ×3 (01:27→10:04)
[2018-11-11] MEDS: D5 1/2 NS 1,000 ML IV SCH (06:13)
[2018-11-11] MEDS: HUMULIN R SUBQ SCH (06:13)
[2018-11-11 06:59] LABS: BASO# 0.01 X1000 (0.0-0.2); BASO% 0.1 % (0.0-0.8); EOS# 0.09 X1000 (0.0-0.7); EOS% 0.5 % (0.0-10.0); HEMATOCRIT 35.7 % (42.0-52.0); HEMOGLOBIN 11.8 g/dL (14.0-18.0); IMM GRAN# 0.11 X1000 (0.0-0.04); IMM GRAN% 0.6 % (0.0-0.5); LYMPH# 3.13 X1000 (1.2-3.4); LYMPH% 17.9 % (20.5-51.1); MCH 30.3 PG (27-31); MCHC 33.1 g/dL (33-37); MCV 91.8 FL (81-99); MONO# 0.47 X1000 (0.11-0.59); MONO% 2.7 % (1.7-9.3); MPV 10.8 FL (7.4-10.4); NEUT% 78.2 % (42.2-75.2); PLT 159 X1000 (130-400); RBC 3.89 XMIL (4.7-6.1); RDW 13.4 % (11.5-14.5); WBC 17.51 X1000 (4.8-10.8)
--- NOTE | 2018-11-11 07:02 | Diag Imaging Result Doc PS360 ---
EXAM: CHEST-1 VIEW 11/11/2018 HISTORY: SOB TECHNIQUE: AP portable at 0454 COMMENT: There is diffuse interstitial and alveolar opacity particularly in the lower lung kirk. This has not changed appreciably since 11/10/2018. IMPRESSION: Pulmonary edema plus minus pneumonia. Electronically signed by Jd Hernandez 11/11/2018 7:00 AM
[2018-11-11 07:34] LABS: AGAP 12; BUN 23 mg/dL (8-22); CALCIUM 7.3 mg/dL (8.8-10.2); CHLORIDE 103 mmol/L (98-107); COSMO 284; CREATININE 0.9 mg/dL (0.7-1.2); ESTIMATED GFR > 60; GLUCOSE 110 mg/dL (70-104); POTASSIUM 3.2 mmol/L (3.5-5.1); SODIUM 140 mmol/L (136-145); TCO2 25 mmol/L (25-35)
[2018-11-11 09:27] LABS: ALLEN TEST YES; BE 3.5 mmoll (-3.0-3.0); BLOOD TYPE ARTERIAL; HCO3-(ACT) 27.6 mmoll (20.0-26.0); METHB 1.3 % (0.0-1.5); O2(CT) 15.2 mL/dL (15.0-23.0); O2HB 94.9 % (95.0-99.0); PCO2(98.6) 32 mmHg (35-45); PO2(98.6) 67 mmHg (60-100); SAMPLE BLOOD; SAO2 97.6 % (95.0-100.0); THB 11.4 g/dL (11.5-17.4); pH(98.6) 7.52 (7.35-7.45)
[2018-11-11 09:28] LABS: MODALITY NRB
[2018-11-11] MEDS ORDERED: LASIX IV ONE ×3 (09:35→15:45)
[2018-11-11] MEDS: PEPCID PO SCH (10:01)
[2018-11-11] MEDS: ARIXTRA SUBQ SCH (10:01)
[2018-11-11] MEDS ORDERED: MORPHINE IV PRN ×2 (10:54→15:50)
[2018-11-11] MEDS ORDERED: ZOFRAN IV PRN (10:58)
[2018-11-11] MEDS: ATIVAN IV PRN (12:41)
[2018-11-11] MEDS: MORPHINE IV PRN ×2 (16:42→22:36)
--- NOTE | 2018-11-11 19:59 | PROGRESS NOTE ---
DATE: 11/11/2018 SUBJECTIVE: The patient is very lethargic. No major issues. OBJECTIVE: Blood pressure 156/84, heart rate 18, temperature 98 degrees, 93% on non-rebreather. The patient is minimally responsive. He appears to be comfortable though. Cardiovascular: Tachycardic. Pulmonary: Occasional rhonchi, but diminished throughout. Gastrointestinal: Soft, nontender, nondistended. Bowel sounds are positive. Saturation 93% on 15 L. LABORATORY: White count 17, hemoglobin and hematocrit 11 and 35, platelets 159,000. PH 7.52, pCO2 of 32, PaO2 of 67. Potassium 3.2. PROBLEM LIST: Acute hypoxic respiratory failure due to pneumonia, progressively worsening. He also has a Staphylococcus epidermidis bacteremia, which I do not think is a contaminant. He has 2 positive blood cultures, acute kidney injury, atrial fibrillation, failure to thrive. Family has elected to, per the patient's own wishes, just make him comfortable, which we are going to continue to do and see how he does over the next several days. If it looks like he is progressing or uncontrolled, we may consider doing a hospice consult. We will keep the family updated. Son is in from [place]. cc: Miguel Burgos MD
[2018-11-12] MEDS: MORPHINE IV PRN ×5 (01:21→16:24)
[2018-11-12] MEDS: ATIVAN IV PRN ×2 (08:36→16:24)
[2018-11-12] MEDS: OFIRMEV 1000 MG/ISOTONIC SOLN 1,000 MG/100 ML BOTTLE IV PRN (14:08)
--- NOTE | 2018-11-12 15:19 | PROGRESS NOTE ---
DATE: 11/12/2018 SUBJECTIVE: Patient has no major complaints. OBJECTIVE: Blood pressure is 132/75, heart rate 137, respiratory rate 25, temp 100.1 degrees, 88% on a non-rebreather.Cardiovascular: Tachy. Pulmonary: Diffuse rhonchi and wheezing. GI: Soft, nontender, nondistended. Bowel sounds were positive. LABORATORY DATA: None. This is an 83-year-old male with severe protein calorie malnutrition, respiratory failure, pneumonia, failure to thrive, acute kidney injury, atrial fibrillation with RVR, who has basically decided he did not want to be kept alive and he did not want any aggressive measures and was prepared to . His family has come and evaluated him and they have decided that we will pursue comfort care. I feel like the patient is actively dying, decompensating. We will continue supportive care and follow. The patient is established DNR 1. cc: Miguel Burgos MD
[2018-11-12] MEDS: ATROPINE 1 % OPHTH SOLN SL PRN (16:34)
[2018-11-13] MEDS: OFIRMEV 1000 MG/ISOTONIC SOLN 1,000 MG/100 ML BOTTLE IV PRN (00:22)
[2018-11-13] MEDS: ATROPINE 1 % OPHTH SOLN SL PRN ×3 (03:23→13:56)
[2018-11-13] MEDS: MORPHINE IV PRN ×5 (03:23→16:39)
[2018-11-13] MEDS: ATIVAN IV PRN (13:56)
[2018-11-13] MEDS ORDERED: TRANSDERM-SCOP TD SCH (16:30)
--- NOTE | 2018-11-13 16:39 | PROGRESS NOTE ---
DATE: 11/13/2018 SUBJECTIVE: Patient has no major complaints. OBJECTIVE: Blood pressure is 141/89, heart rate of 97, respiratory rate 24, temperature 97.6 degrees, 91% on 15 L.Cardiovascular: Regular rate and rhythm. Pulmonary: Bilateral breath sounds. Clear to auscultation. GI: Soft, nontender, nondistended. Bowel sounds were positive. LABORATORY DATA: None. ASSESSMENT AND PLAN: This is a patient with failure to thrive, severe protein-calorie malnutrition, acute kidney injury, pneumonia, who is actively dying from multiple issues. Per his own wishes, family has agreed to pursue comfort care measures and reassess for hospice needs tomorrow. cc: Miguel Burgos MD
[2018-11-14] MEDS: ATIVAN IV PRN (01:30)
[2018-11-14] MEDS: MORPHINE IV PRN ×5 (01:30→21:49)
--- NOTE | 2018-11-14 16:43 | PROGRESS NOTE ---
DATE: 11/14/2018 SUBJECTIVE: Patient is stable. No major complaints. OBJECTIVE: General: Patient has no major issues. Vital Signs: Blood pressure 136/97, heart rate 80, respiratory rate 16, temperature 98.6 degrees, 94% on non-rebreather. Cardiovascular: Tachy. Pulmonary: Diffuse rhonchi and wheezing. Gastrointestinal: Soft, nontender, nondistended. Bowel sounds are positive. LABORATORY DATA: None. ASSESSMENT AND PLAN: The patient with: 1. Acute respiratory failure. 2. Pneumonia. 3. Failure to thrive. Per his wishes and family's support, we are just doing comfort care measures on him. We will continue supportive care and follow. cc: Miguel Burgos MD
[2018-11-15] MEDS: ATIVAN IV PRN (01:00)
[2018-11-15 15:34] VITALS: BP 74/57
--- NOTE | 2018-11-15 16:12 | PROGRESS NOTE ---
DATE: 11/15/2018 SUBJECTIVE: The patient is unresponsive. He is lying in bed. OBJECTIVE: Blood pressure is 74/57, heart rate is 140, so I think he is probably actively dying. He is unresponsive. He is tachycardic. He has increased work of breathing, so he is pretty rough. DISPOSITION: We are going to continue comfort care and follow closely. I think is eminent in his case, especially with his HR and BP dropping. Addendum: Pt became pulseless and apneic; he was pronounced at 1807. cc: Miguel Burgos MD [facility]
--- NOTE | 2018-11-18 04:34 | DISCHARGE SUMMARY ---
ADMISSION DATE: 11/06/2018 DISCHARGE DATE: 11/15/2018 DIAGNOSES: 1. Left lower lobe pneumonia. 2. Acute hypoxic respiratory failure secondary to #1. 3. Dehydration. 4. Acute kidney injury secondary to dehydration. 5. Failure to thrive. 6. Moderate protein calorie malnutrition. 7. Depressive disorder, major. 8. Atrial fibrillation with rapid ventricular response. 9. Benign prostatic hypertrophy. 10. Hypertension. 11. Diabetes mellitus type 2. 12. Methicillin-susceptible Staphylococcus epidermidis in blood cultures x2. CONSULTS: Palliative Care. DIAGNOSTICS: 1. 11/06/2018 chest x-ray revealed right lower lobe pneumonia. 2. 11/06/2018 CT of the head revealed chronic ischemic microvascular changes. No evidence of acute intracranial disease. 3. 11/07/2018 chest x-ray revealed stable to marginal worsening of right lower lung zone consolidation. 4. 11/08/2018 chest x-ray revealed dense right lower lobe zone consolidation, unchanged. No new consolidation. 5. 11/09/2018 chest x-ray revealed slight improvement. 6. 11/10/2018 chest x-ray, worsening central interstitial and basilar infiltrates most suggestive of pulmonary edema, bilateral pleural effusions and severe COPD. 7. 11/11/2018 chest x-ray, pulmonary edema plus or minus pneumonia. MICROBIOLOGY: Blood cultures x2 revealed methicillin-susceptible Staphylococcus epidermidis. CONSULTS: Dr. Bailey, Pulmonology. ECHOCARDIOGRAM: Revealed normal LV size, end-diastolic dimension is 3.6, mild left ventricular hypertrophy with a posterior interventricular septal wall thickness of 1.3 cm. Normal LV systolic function with an estimated EF of 55% with normal wall motion. No pericardial effusion seen. HOSPITAL COURSE: Mr. Smith presented to the emergency room via EMS after being found by his neighbors in respiratory distress. Evidently, the patient had fallen a few days prior. He had refused ambulance transport at that time. Reportedly, the patient had not been eating for quite some days. He was found to have right lower lobe pneumonia, tachycardic and tachypneic with a positive lactate. He was initially admitted to ICU, placed on BiPAP with broad-spectrum antibiotics and bronchodilators. The patient did not want any life-saving measures due to his condition. They talked to his son, Damian, who is a power of securities attorney that lives in [place]. He agreed for the patient to be a DNR 1. Dr. Bailey in pulmonology was consulted. He received antibiotic coverage of vancomycin, Zosyn and cefepime. On arrival, the patient was cachectic appearing, severely malnourished and dehydrated. He received IV hydration. At admission, he was hypotensive with pressures ranging from 76 systolic. He did respond to hydration, never requiring pressors. On admission he was in acute kidney injury having a creatinine of 2.7. This did drop on the to 1.2. During this time medications were adjusted as appropriate. We did trend electrolytes and replete as appropriate. We trended pattern blood glucose and covered with sliding scale insulin. He did go into atrial fibrillation with RVR. He was then placed on a Cardizem drip and on the we were able to start oral medication and transition off the drip. During the hospitalization, it was discussed with the patient his care and his wishes were discussed. The patient was adamant he did not want any life-saving care. In fact, he stated many times he wanted to be left alone. The patient was made DNR 1 with comfort care measures at the wishes of the patient. The patient's son agreed. On the or the 10 of November, the son, the brother and nephew flew in from [place], evaluated the patient and at that time they agreed with comfort care. The patient deteriorated. He refused BiPAP and on November 15 at 6:07 p.m. the patient became pulseless and apneic and was pronounced . TIME SPENT: This is a greater than 30 minute discharge. Dictated by JOHNY Jain for Miguel Burgos MD cc: JOHNY Jain MD
== END 2018-11-15 18:07 | disposition expired | DRG 871 ==
LOC: EDBD → ED 15:02 → EDIPHOLD 17:26 → ICU 11-07 00:05 → 3N 11-10 11:16
PROVIDERS: ATTEND Internal Medicine